=== PATIENT | female | born 1965 | race Caucasian/White ===

== ENCOUNTER 2019-10-11 12:44 | Emergency (ER) | payer MEDICARE, OTHER ==
[~2019-10-11] VITALS: Ht 157.5 cm; Wt 104.3 kg
[2019-10-11 12:51] VITALS: BP 142/75
--- NOTE | 2019-10-11 13:10 | NUR ---
54 y/o female from home states she is 8 mo , hired a psychiatrist to live in her home, and states "the baby is talking to me". Pt states mild abd pain to LUQ since today. States she is unable to recall last period. Unable to state what "the baby is saying to her". Denies SI/HI. Abd soft, round, mild tender to palp. Awake and alert. Denies psych history. medhx: DM
--- NOTE | 2019-10-11 13:13 | NUR ---
Dr Robison at bedside examining pt
[2019-10-11] MEDS ORDERED: DICYCLOMINE 10 MG CAP PO ONE (13:15)
[2019-10-11] MEDS ORDERED: FAMOTIDINE 20 MG TAB PO ONE (13:15)
[2019-10-11] MEDS ORDERED: ONDANSETRON 4 MG ODT PO ONE (13:15)
--- NOTE | 2019-10-11 13:29 | NUR ---
Lab at bedside for blood draw
[2019-10-11 13:35] LABS: BASOPHILS # (AUTO) 0.1 K/uL (0.00-0.22); BASOPHILS % (AUTO) 0.9 % (0.0-2.0); EOSINOPHILS # (AUTO) 0.1 K/uL (0-0.4); EOSINOPHILS % (AUTO) 1.1 % (0.0-4.0); HEMATOCRIT 36.2 % (36-48); HEMOGLOBIN 12.3 g/dL (12.0-16.0); LYMPHOCYTES # (AUTO) 1.5 K/uL (2.5-16.5); LYMPHOCYTES % (AUTO) 21.5 % (20.5-51.1); MEAN CORPUSCULAR HEMOGLOBIN 32 pg (27-31); MEAN CORPUSCULAR HGB CONC 34 g/dL (33-37); MEAN CORPUSCULAR VOLUME 93.3 fL (80-94); MONOCYTES # (AUTO) 0.5 K/uL (0.8-1.0); MONOCYTES % (AUTO) 6.8 % (1.7-9.3); NEUTROPHILS # (AUTO) 4.9 K/uL (1.8-7.7); NEUTROPHILS % (AUTO) 69.7 % (42.2-75.2); PLATELET COUNT (AUTO) 304 K/uL (140-450); RED BLOOD CELL COUNT(AUTO) 3.88 MIL/uL (4.20-5.40); RED CELL DISTRIBUTION WIDTH 13.3 % (11.6-13.7); WHITE BLOOD COUNT (AUTO) 7.1 K/uL (4.8-10.8)
--- NOTE | 2019-10-11 13:54 | NUR ---
Telepsych request placed. Monitor on and at bedside.
[2019-10-11 13:59] LABS: BARBITURATE, URINE NEGATIVE ng/ml (NEG <=200); BENZODIAZEPINE, URINE NEGATIVE ng/mL (NEG <=200); CANNABINOID, URINE NEGATIVE ng/mL (NEG <=50); COCAINE, URINE NEGATIVE ng/mL (NEG <=300); OPIATE, URINE NEGATIVE ng/mL (NEG <=2000); PHENCYCLIDINE SCREEN,URINE NEGATIVE ng/mL (NEG <=25)
--- NOTE | 2019-10-11 14:12 | NUR ---
Resting with eyes closed, arousable to name. Denies pain at this time. Will continue to monitor
[2019-10-11 14:19] LABS: ALBUMIN 3.5 g/dL (3.4-5.0); ANION GAP 18.8 (8-16); ASPARTATE AMINOTRANSFERASE 9 U/L (15-37); CARBON DIOXIDE 23.3 mmol/L (21-32); CHLORIDE 99 mmol/L (98-107); CREATININE 1.5 mg/dL (0.6-1.3); GFR ARICAN-AMERICAN 47 mL/min (>90); GLUCOSE 345 mg/dL (74-106); LIPASE 189 U/L (73-393); POTASSIUM 4.1 mmol/L (3.5-5.1); SODIUM SERUM 137 mmol/L (136-145); TOTAL BILIRUBIN 0.3 mg/dL (0.0-1.0); UREA NITROGEN, BLOOD 13 mg/dL (7-18)
--- NOTE | 2019-10-11 14:19 | NUR ---
Pt speaking to Telepsych at this time.
--- NOTE | 2019-10-11 15:29 | NUR ---
Resting with eyes closed, visible rise and fall of the chest. Positioned for comfort, x 2 side rails raised and bed locked and in lowest position. VSS will continue to monitor
--- NOTE | 2019-10-11 15:45 | NUR ---
Pt ambulated to restroom with steady gait
--- NOTE | 2019-10-11 15:51 | NUR ---
[place] [employer] at bedside speaking with pt
--- NOTE | 2019-10-11 16:00 | NUR ---
Patient moved to bed 6 closer to nurses station.
[2019-10-11] MEDS ORDERED: INSULIN REGULAR, HUMAN 100 UNIT/ML VIAL SUBQ ONE (16:10)
--- NOTE | 2019-10-11 19:06 | NUR ---
REPORT GIVEN TO SIM SANDOVAL FOR CONTINUITY OF CARE
--- NOTE | 2019-10-11 19:06 | NUR ---
REPORT RECEIVED FROM ISAEL SANDOVAL FOR CONTINUITY OF CARE
--- NOTE | 2019-10-11 19:55 | NUR ---
REPORT TO JAIME PATRICIO AT [facility]. ALL QUESTIONS ANSWERED.
[2019-10-11 20:00] VITALS: BP 136/77
--- NOTE | 2019-10-11 20:00 | NUR ---
Patient to be transferred to [facility]. Is being transferred due to HIGHER LEVEL OF CARE. Receiving facility has accepting physician and available space. ER physician has signed transfer form. Patient or responsible democrat has agreed to transfer and signed form. Patient belongings inventoried and will be sent with patient. Copy of nursing notes, lab reports, EKG, Physicians Orders and X-rays to be sent with patient. Report called to SHENG at receiving facility. [facility] ambulance service has been called for transfer. ETA is 45 MIN.
== END 2019-10-11 20:00 | disposition short-term general hospital (02) ==
LOC: MED 12:44
DX: F23 Brief psychotic disorder (principal); F31.9 Bipolar disorder, unspecified; E10.69 Type 1 diabetes mellitus with other specified complication; Z88.5 Allergy status to narcotic agent; Z88.8 Allergy status to other drugs, medicaments and biological substances
CPT/HCPCS: 36415; 80053; 80305; 81002; 81025; 83690; 85025; 96372; 99285; G0482; J1815; Q0162; 99284